=== PATIENT | female | born 1965 | race Caucasian/White ===

== ENCOUNTER 2016-11-18 12:40 | Inpatient (IN) | payer OTHER ==
[2016-11-18] MEDS ORDERED: SODIUM CHLORIDE 1,000 ML IV STA (12:47)
[2016-11-18 12:48] VITALS: BMI 35.9
[2016-11-18] MEDS ORDERED: METOCLOPRAMIDE HCL INJECTION 10 MG/2 ML VIAL IVPUSH ONE (13:09)
--- NOTE | 2016-11-18 13:11 | PDOC ---
History of Present Illness - General History Source: Patient Exam Limitations: No Limitations <ToñitoAsael - Last Filed: 11/18/16 17:02> - History of Present Illness Initial Comments: 11/18/16 17:33 Patient is a 51 year old female with significant medical hx of DM, DKA, gastroparesis, peripheral neuropathy, and ulcerative colitis who is presenting to the ED with one day of nausea, vomiting, and high blood sugar. The patient states that she began feeling unwell since last night, when her sugars were running in the 200s. Her blood sugar levels have been well controlled up until then. Today she woke up and began having multiple episodes of nausea and vomiting. She also endorses some frequency with urination. Denies fever, chills, diarrhea, dysuria, or hematuria. PMD: Vic Puri MD Global Mobility Specialist: Jose Garza MD Produce Runner: Danae James MD <Norma Wick - Last Filed: 11/18/16 17:35> - General Chief Complaint: Blood Sugar Problem Stated Complaint: HIGH SUGAR Past History - Past Medical History Anemia: No Asthma: Yes Cancer: No Cardiac Disorders: Yes (HEART MURMUR) CVA: No COPD: No CHF: No Dementia: No Diabetes: Yes (IDDM, INSULIN PUMP) GI Disorders: Yes (U.COLITIS,GASTROPARESIS) Disorders: No HTN: Yes Hypercholesterolemia: Yes Liver Disease: No Suicide Attempt (Hx): No Seizures: No Thyroid Disease: No - Surgical History Abdominal Surgery: No Appendectomy: No Cardiac Surgery: No Cholecystectomy: No Lung Surgery: No Neurologic Surgery: No Orthopedic Surgery: No - Immunization History Td Vaccination: No Immunization Up to Date: No - Psycho/Social/Smoking Cessation Hx Anxiety: No Suicidal Ideation: No Smoking Status: No Smoking History: Never smoked Years of Tobacco Use: 0 Have you smoked in the past 12 months: No Number of Cigarettes Smoked Daily: 0 Information on smoking cessation initiated: No Hx Alcohol Use: No Drug/Substance Use Hx: No Substance Use Type: None Hx Substance Use Treatment: No <Asael Sibley - Last Filed: 11/18/16 17:02> <Norma Wick - Last Filed: 11/18/16 17:35> - Past Medical History Allergies/Adverse Reactions: Allergies Allergy/AdvReac Type Severity Reaction Status Date / Time adhesive tape Allergy Mild Skin Rash Verified 11/18/16 12:44 clarithromycin [From Biaxin] Allergy N/V, RASH Verified 11/18/16 12:44 Home Medications: Ambulatory Orders Aspirin [Aspir-Low] 81 mg PO DAILY 01/20/13 Cholecalciferol (Vitamin D3) [Vitamin D3] 5,000 unit PO DAILY capsule 01/20/13 Simvastatin [Zocor -] 40 mg PO HS 06/12/14 Ranitidine HCl [Zantac] 150 mg PO DAILY PRN 10/14/15 Ondansetron [Zofran Odt -] 8 mg SL Q6H PRN 11/03/15 Amlodipine Besylate [Norvasc -] 10 mg PO DAILY #30 tablet 11/21/15 Albuterol Sulfate Inhaler - [Ventolin HFA Inhaler -] 1 - 2 inh PO Q4H #1 inhaler 05/17/16 Budesonide/Formeterol Fumarate [SYMBICORT 160/4.5mcg -] 1 inh PO BID 05/17/16 Insulin Pump Controller [Snap Insulin Pump Controller] 1 each MC ASDIR 07/02/16 Levothyroxine [Synthroid -] 25 mcg PO DAILY 11/18/16 Review of Systems - Review of Systems Comments:: 11/18/16 17:34 CONSTITUTIONAL: No reported: Fever, Chills, Diaphoresis, Generalized Weakness, Malaise, Loss of Appetite HEENT: No reported: Rhinorrhea, Nasal Congestion, Throat Pain, Throat Swelling, Difficulty Swallowing, Mouth Swelling, Ear Pain, Eye Pain, Visual Changes CARDIOVASCULAR: No reported: Chest Pain, Syncope, Palpitations, Irregular Heart Rate, Lightheadedness, Peripheral Edema RESPIRATORY: No reported: Cough, Shortness of Breath, SOB with Exertion, Orthopnea, Wheezing , Stridor, Hemoptysis GASTROINTESTINAL: Reported: Nausea, Vomiting No reported: Abdominal pain, Abdominal Distension, Diarrhea, Constipation, Melena, Hematochezia GENITOURINARY: Reported: Frequency No reported: Dysuria, Urgency, Hesitancy, Flank Pain, Genital Pain MUSCULOSKELETAL: No reported: Myalgia, Arthralgia, Joint Swelling, Back pain, Neck Pain SKIN: No reported: Rash, Itching, Pallor HEMEATOLOGIC/IMMUNOLOGIC: No reported: Easy Bleeding, Easy Bruising, Lymphadenopathy, Frequent infections ENDOCRINE: Reported: High Blood Sugar No reported: Unexplained Weight Gain, Unexplained Weight Loss, Heat Intolerance , Cold Intolerance NEUROLOGIC: No reported: Headache, Focal Weakness, Paresthesias, Vertigo, Lightheadedness, Unsteady Gait, Seizure, Mental Status Changes, Incontinence PSYCHIATRIC: No reported: Anxiety, Depression <eDlanoNorma - Last Filed: 11/18/16 17:35> *Physical Exam - Vital Signs Last Vital Signs Temp Pulse Resp BP Pulse Ox 97.9 F 103 H 18 113/45 96 11/18/16 12:45 11/18/16 12:45 11/18/16 12:45 11/18/16 12:45 11/18/16 12:45 <ToñitoAsael alan - Last Filed: 11/18/16 17:02> - Vital Signs Last Vital Signs Temp Pulse Resp BP Pulse Ox 97.9 F 108 H 16 109/59 97 11/18/16 13:00 11/18/16 15:07 11/18/16 15:07 11/18/16 15:07 11/18/16 15:07 - Physical Exam Comments: 11/18/16 17:34 GENERAL: The patient is awake, alert, and fully oriented, Nontoxic - in no acute distress. HEAD: Normocephalic, atraumatic. EYES: extraocular movements intact, sclera anicteric, conjunctiva clear. ENT: Normal voice, Mildly dry mucous membranes. NECK: Normal range of motion, supple LUNGS: Breath sounds equal, clear to auscultation bilaterally. No wheezes, no rhonchi, no rales. HEART: Slightly Tachycardic, without murmur, rub or gallop. ABDOMEN: Soft, nontender, normoactive bowel sounds. No guarding, no rebound.No CVA tenderness EXTREMITIES: Insulin pump left shoulder. Normal range of motion, no edema. No clubbing or cyanosis. No cords, erythema, or tenderness. NEUROLOGICAL: No facial assymetry, Normal speech, PSYCH: Normal mood, normal affect. SKIN: Warm, Dry, normal turgor. <DelanoNorma - Last Filed: 11/18/16 17:35> Heart Score/ECG Review - ECG Impressions Comment:: 11/18/16 13:22 Twelve-lead EKG was performed and reviewed by me. There is normal sinus rhythm with a rate of 103. Normal axis No ST changes suggestive of acute ischemia Sinus tachycardia <Toñito,Asael - Last Filed: 11/18/16 17:02> ED Treatment Course - LABORATORY CBC & Chemistry Diagram: 11/18/16 13:15 11/18/16 13:15 <Toñito,Asael - Last Filed: 11/18/16 17:02> - LABORATORY CBC & Chemistry Diagram: 11/18/16 13:15 11/18/16 13:15 - ADDITIONAL ORDERS Additional order review: Laboratory Results 11/18/16 11/18/16 11/18/16 13:15 13:15 13:15 INR 1.03 VBG pH POC VBG pCO2 POC VBG pO2 Mixed VBG HCO3 Sodium 136 Potassium 5.8 H D Chloride 99 Carbon Dioxide 20 L Anion Gap 17 H BUN 44 H D Creatinine 1.7 H D Creat Clearance w eGFR 31.69 Random Glucose 675 H* D Calcium 9.6 Total Bilirubin 0.6 D AST 22 D ALT 24 D Alkaline Phosphatase 116 D Total Protein 7.0 Albumin 4.1 D Urine Color Urine Appearance Urine pH Ur Specific [place] Urine Protein Urine Glucose (UA) Urine Ketones Urine Blood Urine Nitrite Urine Bilirubin Urine Urobilinogen Ur Leukocyte Esterase Acetone, Qual Trace H 11/18/16 11/18/16 13:00 12:53 INR VBG pH 7.28 L POC VBG pCO2 45.3 POC VBG pO2 35.7 D Mixed VBG HCO3 20.3 Sodium Potassium Chloride Carbon Dioxide Anion Gap BUN Creatinine Creat Clearance w eGFR Random Glucose Calcium Total Bilirubin AST ALT Alkaline Phosphatase Total Protein Albumin Urine Color Straw Urine Appearance Clear Urine pH 5.0 Ur Specific [place] 1.022 Urine Protein Negative Urine Glucose (UA) 3+ H Urine Ketones 1+ H Urine Blood Negative Urine Nitrite Negative Urine Bilirubin Negative Urine Urobilinogen Negative Ur Leukocyte Esterase Negative Acetone, Qual 11/18/16 13:15 RBC 4.77 D MCV 80.2 MCHC 31.3 L RDW 14.3 MPV 9.5 Neutrophils % 91.7 H D Lymphocytes % 5.3 L D Monocytes % 2.5 L Eosinophils % 0.2 D Basophils % 0.3 - RADIOLOGY Radiograph Interpretation: 11/18/16 16:11 Chest X-Ray Impression: No acute pathology. Reported By: Jose Bray MD - Medications Given in the ED: ED Medications Discontinued Medications Generic Name Dose Route Start Last Admin Trade Name Malathi PRN Reason Stop Dose Admin Sodium Chloride 1,000 mls @ 1,000 mls/hr 11/18/16 12:47 11/18/16 13:40 Normal Saline - IV 11/18/16 13:46 1,000 mls/hr .Q1H STA Administration Sodium Chloride 1,000 mls @ 1,000 mls/hr 11/18/16 14:49 11/18/16 14:58 Normal Saline - IV 11/18/16 15:48 1,000 mls/hr .Q1H ONE Administration Insulin Human Regular 8 units 11/18/16 14:51 11/18/16 15:07 Novolin R Vial *For Ivpush Or Iv Drip Only* IVPUSH 11/18/16 14:52 8 units ONCE ONE Administration Metoclopramide HCl 10 mg 11/18/16 13:09 11/18/16 13:40 Reglan Injection - IVPUSH 11/18/16 13:10 10 mg ONCE ONE Administration <Norma Wick - Last Filed: 11/18/16 17:35> Medical Decision Making - Medical Decision Making 11/18/16 13:09 51y F hx of insulin dependent DM c/b dka, gastroparesis, UC (well controlled, not on any meds currently) on an insulin pump presents with feeling nauseas with several episodes of vomiting of food contents w/o associated abd pain,f ever/chills, diarrhea, cp, sob, pt noticed her finger sticks increasing yesterday to the 200s and then 450s last night, and was in the 500s this morning. concern for possible dka no abd pain to suggestive acute infective process will ck labs, vbg, serum acetones will hydrate pt with fluids will ck ua to r/o dka will reassess A portion of this note was documented by scribe services under my direction. I have reviewed the details of the note, within reason, and agree with the documentation with the following case summary and management plan written by me 11/18/16 16:08 pts labs noted for mild acidosis, co2 = 20, anion gap of 17 +leukocytosis +trace serum acetones bgmp 600s suspect early dka - will give insulin boluses and recheck her blood sugar will notify dr. James (endocrine) will admit for further management of hyperglycemia 11/18/16 17:[address] wendy james states she agrees with management, but cannot see the pt as she does not have privileges here at [facility] agreed with admission for further mangaement of early dka/hyperglycemia will continue hydration/fluid resusitation stable for med/surg. Case discussed in detail with admitting physician including history, physical exam and ancillary studies. Admitting physician has assumed care for the patient, will follow all pending diagnostics and will complete the evaluation and treatment. <Asael Sibley - Last Filed: 11/18/16 17:02> *DC/Admit/Observation/Transfer - Discharge Dispostion Admit: Yes <Asael Sibley - Last Filed: 11/18/16 17:02> - Attestations Scribe Attestion: 11/18/16 17:35 Documentation prepared by Norma Wick, acting as medical laboratory specialist for Asael Sibley MD. <Norma Wick - Last Filed: 11/18/16 17:35> Diagnosis at time of Disposition: Nausea Diabetic ketoacidosis Qualifiers: Diabetes mellitus type: type 1 Diabetes mellitus complication detail: without coma Qualified Code(s): E10.10 - Type 1 diabetes mellitus with ketoacidosis without coma - Referrals Referrals: Vic Puri MD [Primary Care Provider] -
[2016-11-18] MEDS ORDERED: METOCLOPRAMIDE HCL INJECTION 10 MG/2 ML VIAL ONE (13:22)
[2016-11-18 13:23] LABS: URINE APPEARANCE CLEAR; URINE BILIRUBIN NEGATIVE (NEGATIVE); URINE BLOOD NEGATIVE (NEGATIVE); URINE COLOR STRAW; URINE GLUCOSE (UA) 3+ (NEGATIVE); URINE KETONE 1+ (NEGATIVE); URINE LEUK ESTERASE NEGATIVE (NEGATIVE); URINE NITRITE NEGATIVE (NEGATIVE); URINE PROTEIN NEGATIVE (NEGATIVE); URINE UROBILINOGEN NEGATIVE E.U./dl (0.2-1.0)
[2016-11-18 13:40] LABS: BASOPHIL 0.3 % (0-2.0); EOSINOPHIL 0.2 % (0-4.5); MCH 25.1 pg (25.7-33.7); MCHC 31.3 g/dl (32.0-36.0); MEAN CELL VOLUME 80.2 fl (80-96); MEAN PLT VOLUME 9.5 fl (7.5-11.1); NEUTROPHILS 91.7 % (42.8-82.8); PLATELET COUNT 222 K/MM3 (134-434); RDW 14.3 % (11.6-15.6); WHITE BLOOD COUNT 16.6 K/mm3 (4.0-10.0)
[2016-11-18 13:48] LABS: VENOUS BLOOD GAS HCO3 20.3 meq/L (19-25)
[2016-11-18 13:51] LABS: VENOUS PH 7.28 (7.32-7.42)
[2016-11-18 13:57] LABS: INR 1.03 (0.82-1.09); PROTHROMBIN TIME (PATIENT) 11.3 SEC (9.98-11.88)
[2016-11-18 14:25] LABS: ALBUMIN 4.1 g/dl (3.4-5.0); BILIRUBIN,TOTAL 0.6 mg/dL (0.2-1.0); CALCIUM 9.6 mg/dL (8.5-10.1); COCKROFT - GAULT 53.261; CREATININE 1.7 mg/dL (0.55-1.02)
[2016-11-18] MEDS ORDERED: SODIUM CHLORIDE 1,000 ML IV ONE ×2 (14:49→16:07)
[2016-11-18] MEDS ORDERED: INSULIN REGULAR HUMAN 100 UNITS/ML *VIAL IVPUSH ONE (14:51)
[2016-11-18] MEDS ORDERED: INSULIN REGULAR HUMAN 100 UNITS/ML *VIAL ONE (15:02)
--- NOTE | 2016-11-18 17:10 | HP ---
CHIEF COMPLAINT: "my sugar is high" PCP: Dr Puri Endocrine: Dr James HISTORY OF PRESENT ILLNESS: This is a 51 yo F with PMH of IDDM (insuling Pump), previous DKA 11/2013, gastroparesis, asthma, ulcerative colitis (controlled, not on meds), hypothyroidism, HTN, HLD and cardiac murmur, who presents due to elevated sugars and n/v. She states that yesterday she was in her usual health except for mild allergies. She checked her sugars and they were climbing as high as 450 but went down to 250 at night. In the morning she woke up feeling ill and nauseous, her BG 550. She had 4 episodes of nbnb vomit. She lost appetite. She denies sick contacts, fever chills, chest pain, sob, h.a, throat pain, abd pain , dysuria or diarrhea. She states that her BG has been better controlled, A1C 8.1 1 mo ago. She feels better in ED after insulin, reglan and IVF ER course was notable for: (1)labs (2)cxr (3)8 units novolin, 3L NS IV, reglan 10. Recent Travel:denies PAST MEDICAL HISTORY: as above PAST SURGICAL HISTORY: cataract Social History: lives with son and mother. cubicle job Smoking: denies Alcohol: denies Drugs: denies Family History: DM, CAD Allergies adhesive tape Allergy (Mild, Verified 11/18/16 12:44) Skin Rash clarithromycin [From Biaxin] Allergy (Verified 11/18/16 12:44) N/V, RASH HOME MEDICATIONS: Home Medications Medication Instructions Recorded Aspirin [Aspir-Low] 81 mg PO DAILY 01/20/13 Cholecalciferol (Vitamin D3) 5,000 unit PO DAILY capsule 01/20/13 [Vitamin D3] Simvastatin [Zocor -] 40 mg PO HS 06/12/14 Ranitidine HCl [Zantac] 150 mg PO DAILY PRN 10/14/15 Ondansetron [Zofran Odt -] 8 mg SL Q6H PRN 11/03/15 Amlodipine Besylate [Norvasc -] 10 mg PO DAILY #30 tablet 11/21/15 Albuterol Sulfate Inhaler - 1 - 2 inh PO Q4H #1 inhaler 05/17/16 [Ventolin HFA Inhaler -] Budesonide/Formeterol Fumarate 1 inh PO BID 05/17/16 [SYMBICORT 160/4.5mcg -] Insulin Pump Controller [Snap 1 each MC ASDIR 07/02/16 Insulin Pump Controller] Levothyroxine [Synthroid -] 25 mcg PO DAILY 11/18/16 REVIEW OF SYSTEMS CONSTITUTIONAL: Absent: fever, chills, diaphoresis HEENT: Absent: throat pain, ear pain CARDIOVASCULAR: Absent: chest pain, syncope, palpitations RESPIRATORY: Absent: cough, shortness of breath, orthopnea, wheezing, stridor, hemoptysis GASTROINTESTINAL: Absent: abdominal pain, abdominal distension, diarrhea, constipation, melena, hematochezia GENITOURINARY: Absent: dysuria, flank pain MUSCULOSKELETAL: Absent: myalgia, arthralgia SKIN: Absent: rash, itching, pallor HEMATOLOGIC/IMMUNOLOGIC: Absent: frequent infections ENDOCRINE: Absent: unexplained weight gain, unexplained weight loss NEUROLOGIC: Absent: headache, focal weakness or paresthesias PSYCHIATRIC: Absent: anxiety, depression PHYSICAL EXAMINATION Vital Signs - 24 hr 11/18/16 11/18/16 11/18/16 12:45 13:00 15:07 Temperature 97.9 F 97.9 F Pulse Rate 103 H 103 H Pulse Rate [ 108 H Apical] Respiratory 18 18 16 Rate Blood Pressure 113/45 113/45 Blood Pressure 109/59 [Left Arm] O2 Sat by Pulse 96 96 97 Oximetry (%) GENERAL: Awake, alert, and fully oriented, in no acute distress. HEAD: Normal with no signs of trauma. EYES: Pupils equal, round and reactive to light, extraocular movements intact, sclera anicteric, conjunctiva clear. No lid lag. EARS, NOSE, THROAT: Moist mucous membranes. NECK: supple LUNGS: Breath sounds equal, clear to auscultation bilaterally. No wheezes HEART: Regular rate and rhythm, normal S1 and S2 grade 2 syst ej murmur ABDOMEN: Soft, nontender, not distended, normoactive bowel sounds, no guarding, no rebound, no masses. mild hepatomegaly MUSCULOSKELETAL: No CVA tenderness. UPPER EXTREMITIES: 2+ pulses, warm, well-perfused. No cyanosis. No clubbing. No peripheral edema. LOWER EXTREMITIES: 2+ pulses, warm, well-perfused. No calf tenderness. trace edema. NEUROLOGICAL: Cranial nerves II-XII grossly intact. Normal speech. PSYCHIATRIC: Cooperative. Good eye contact. Appropriate mood and affect. SKIN: Warm, dry Laboratory Results - last 24 hr 11/18/16 11/18/16 11/18/16 12:53 13:00 13:15 WBC 16.6 H D RBC 4.77 D Hgb 12.0 D Hct 38.3 D MCV 80.2 MCHC 31.3 L RDW 14.3 Plt Count 222 D MPV 9.5 Neutrophils % 91.7 H D Lymphocytes % 5.3 L D Monocytes % 2.5 L Eosinophils % 0.2 D Basophils % 0.3 INR VBG pH 7.28 L POC VBG pCO2 45.3 POC VBG pO2 35.7 D Mixed VBG HCO3 20.3 Sodium Potassium Chloride Carbon Dioxide Anion Gap BUN Creatinine Creat Clearance w eGFR Random Glucose Calcium Total Bilirubin AST ALT Alkaline Phosphatase Total Protein Albumin Urine Color Straw Urine Appearance Clear Urine pH 5.0 Ur Specific [place] 1.022 Urine Protein Negative Urine Glucose (UA) 3+ H Urine Ketones 1+ H Urine Blood Negative Urine Nitrite Negative Urine Bilirubin Negative Urine Urobilinogen Negative Ur Leukocyte Esterase Negative Acetone, Qual 11/18/16 11/18/16 11/18/16 13:15 13:15 13:15 WBC RBC Hgb Hct MCV MCHC RDW Plt Count MPV Neutrophils % Lymphocytes % Monocytes % Eosinophils % Basophils % INR 1.03 VBG pH POC VBG pCO2 POC VBG pO2 Mixed VBG HCO3 Sodium 136 Potassium 5.8 H D Chloride 99 Carbon Dioxide 20 L Anion Gap 17 H BUN 44 H D Creatinine 1.7 H D Creat Clearance w eGFR 31.69 Random Glucose 675 H* D Calcium 9.6 Total Bilirubin 0.6 D AST 22 D ALT 24 D Alkaline Phosphatase 116 D Total Protein 7.0 Albumin 4.1 D Urine Color Urine Appearance Urine pH Ur Specific [place] Urine Protein Urine Glucose (UA) Urine Ketones Urine Blood Urine Nitrite Urine Bilirubin Urine Urobilinogen Ur Leukocyte Esterase Acetone, Qual Trace H ASSESSMENT/PLAN: This is a 51 yo F with PMH of IDDM (insuling Pump), previous DKA 11/2013, gastroparesis, asthma, ulcerative colitis (controlled, not on meds), hypothyroidism, HTN, HLD and cardiac murmur, who presents due to elevated sugars and n/v. DKA -BGM 675 improed to 334 s/p 8 U novolin IV push -gap was 17 now closed -hyperkalemia 5.8; PH was above 6.9 so HCO3 not indicated, now improved to 4.4 -corrected Na 142 -place on insulin sliding scale BGM q4h -NPO except meds DARINEL -Creat 1.7 improved to 1.4 with IVF; baseline =1 -pre renal/dehydration -continue IVF hydration Leukocytosis -reactive, no evidence of infectious process Gastroparesis -reglan 10 iv prn -zofran prn Asthma -symbicort, duoneb, albuterol Hypothyroidism -levothyroxone 25 d HTN -norvasc 10 d HLD -atorvastatin 40 hs Ulcerative colitis -controlled w/o meds FEN NS@150 lytes stable NPO except meds, start liquids tomorrow Dispo: admit med joao Problem List - Problem (1) Diabetic ketoacidosis Code(s): E13.10 - OTH DIABETES MELLITUS WITH KETOACIDOSIS WITHOUT COMA Qualifiers: Diabetes mellitus type: type 1 Diabetes mellitus complication detail: without coma Qualified Code(s): E10.10 - Type 1 diabetes mellitus with ketoacidosis without coma (2) Nausea Code(s): R11.0 - NAUSEA (3) Dehydration Code(s): E86.0 - DEHYDRATION (4) Hypertension Code(s): I10 - ESSENTIAL (PRIMARY) HYPERTENSION (5) Leukocytosis Code(s): D72.829 - ELEVATED WHITE BLOOD CELL COUNT, UNSPECIFIED (6) Diabetic gastroparesis Code(s): E11.43 - TYPE 2 DIABETES W DIABETIC AUTONOMIC (POLY)NEUROPATHY K31.84 - GASTROPARESIS (7) Hyperlipidemia Code(s): E78.5 - HYPERLIPIDEMIA, UNSPECIFIED (8) Hypothyroid Code(s): E03.9 - HYPOTHYROIDISM, UNSPECIFIED (9) Asthma Code(s): J45.909 - UNSPECIFIED ASTHMA, UNCOMPLICATED (10) Ulcerative colitis Code(s): K51.90 - ULCERATIVE COLITIS, UNSPECIFIED, WITHOUT COMPLICATIONS Visit type - Emergency Visit Emergency Visit: Yes ED Registration Date: 11/18/16 Care time: The patient presented to the Emergency Department on the above date and was hospitalized for further evaluation of their emergent condition. - New Patient This patient is new to me today: Yes Date on this admission: 11/18/16 - Critical Care Critical Care patient: No
[2016-11-18 17:56] LABS: CALCIUM 8.3 mg/dL (8.5-10.1); COCKROFT - GAULT 64.6765; CREATININE 1.4 mg/dL (0.55-1.02)
--- NOTE | 2016-11-18 18:06 | PN ---
Teaching Attending Note Name of Resident: Caridad Chung ATTENDING PHYSICIAN STATEMENT I saw and evaluated the patient. I reviewed the resident's note and discussed the case with the resident. I agree with the resident's findings and plan as documented. SUBJECTIVE: OBJECTIVE: Vital Signs Period Temp Pulse Resp BP Sys/Sheth Pulse Ox Last 24 Hr 97.9 F-97.9 F 103-108 16-18 109-122/45-59 95-97 ASSESSMENT AND PLAN:
[2016-11-18] MEDS ORDERED: INSULIN SLIDING SCALE (NOVOLOG) 1 VIAL SQ SCH (18:30)
[2016-11-18] MEDS ORDERED: SODIUM CHLORIDE 1,000 ML IV SCH (18:30)
[2016-11-18] MEDS ORDERED: INSULIN (NOVOLOG) ASPART 100 UNITS/ML 10ML VIAL ONE ×2 (18:37→22:00)
[2016-11-18] MEDS ORDERED: ONDANSETRON *ODT* 4 MG TABLET SL PRN (18:53)
[2016-11-18] MEDS ORDERED: RANITIDINE HCL 150 MG TABLET (FP) PO PRN (18:53)
[2016-11-18] MEDS ORDERED: METOCLOPRAMIDE HCL INJECTION 10 MG/2 ML VIAL IVPUSH PRN (18:55)
[2016-11-18] MEDS ORDERED: ALBUTEROL SO4 6.7 GM HFA INHALER IH PRN (19:00)
[2016-11-18] MEDS: SODIUM CHLORIDE 1,000 ML IV SCH (20:05)
[2016-11-18] MEDS ORDERED: Insulin (LOG) Aspart 100 UNITS/ML VIAL SQ ONE (21:59)
[2016-11-18] MEDS: ATORVASTATIN CA 40 MG TABLET (FP) PO SCH (22:05)
[2016-11-18] MEDS: BUDESONIDE/FORMETEROL FUMARATE 160/4.5 mcg INHALER IH SCH (22:06)
[2016-11-18] MEDS: INSULIN SLIDING SCALE (NOVOLOG) 1 VIAL SQ SCH (22:13)
[2016-11-19] MEDS: INSULIN SLIDING SCALE (NOVOLOG) 1 VIAL SQ SCH ×3 (06:14→16:32)
[2016-11-19 08:09] LABS: MCH 25.5 pg (25.7-33.7); MCHC 32.5 g/dl (32.0-36.0); MEAN CELL VOLUME 78.5 fl (80-96); MEAN PLT VOLUME 9.4 fl (7.5-11.1); PLATELET COUNT 193 K/MM3 (134-434); RDW 14.9 % (11.6-15.6); WHITE BLOOD COUNT 11.7 K/mm3 (4.0-10.0)
[2016-11-19 08:44] LABS: CALCIUM 7.9 mg/dL (8.5-10.1); COCKROFT - GAULT 69.649; CREATININE 1.3 mg/dL (0.55-1.02); MAGNESIUM 2.1 mg/dL (1.8-2.4); PHOSPHOROUS 3.1 mg/dL (2.5-4.9)
[2016-11-19] MEDS: SODIUM CHLORIDE 1,000 ML IV SCH ×2 (09:14→18:06)
[2016-11-19] MEDS ORDERED: PT OWN MED DRAWER 7, Y5N ONE ×2 (10:28→21:55)
[2016-11-19] MEDS: ASPIRIN COATED 81 MG TABLET.EC PO SCH (10:32)
[2016-11-19] MEDS: BUDESONIDE/FORMETEROL FUMARATE 160/4.5 mcg INHALER IH SCH ×2 (10:32→22:01)
[2016-11-19] MEDS: amLODIPine BESYLATE 10 MG TABLET (FP) PO SCH (10:32)
[2016-11-19] MEDS: LEVOTHYROXINE NA 25 MCG TABLET (FP) PO SCH (10:32)
[2016-11-19] MEDS: MONTELUKAST NA 10 MG TABLET PO SCH (10:32)
--- NOTE | 2016-11-19 14:31 | EKG ---
Test Reason : Blood Pressure : / mmHG Vent. Rate : 102 BPM Atrial Rate : 102 BPM P-R Int : 140 ms QRS Dur : 074 ms QT Int : 350 ms P-R-T Axes : 044 -01 028 degrees QTc Int : 456 ms SINUS TACHYCARDIA possible lateral ischemia POSSIBLE LEFT ATRIAL ENLARGEMENT NONSPECIFIC ST ABNORMALITY ABNORMAL ECG NO PREVIOUS ECGS AVAILABLE Confirmed by LOLIS RASHID MD ([id number]) on 11/19/2016 2:31:32 PM Referred By: Confirmed By:LOLIS RASHID MD
--- NOTE | 2016-11-19 15:55 | PN ---
Physical Exam: SUBJECTIVE: Patient seen and examined Patient resting in bed NAD. No acute events. Afebrile and hemodynamically stable. Glucose has been in mid 300's off pump, on sliding scale only. required 10 u at night. Feels well. Denies n/v, maiaise, and pain, pilyuria. OBJECTIVE: Vital Signs Period Temp Pulse Resp BP Sys/Sheth Pulse Ox Last 24 Hr 97.9 F-98.6 F 95-113 16-20 106-134/57-66 95-99 GENERAL: Awake, alert, and fully oriented, in no acute distress. HEAD: Normal with no signs of trauma. EYES: Pupils equal, round and reactive to light, extraocular movements intact, sclera anicteric, conjunctiva clear. No lid lag. EARS, NOSE, THROAT: Moist mucous membranes. NECK: supple LUNGS: Breath sounds equal, clear to auscultation bilaterally. No wheezes HEART: Regular rate and rhythm, normal S1 and S2 grade 2 syst ej murmur ABDOMEN: Soft, nontender, not distended, normoactive bowel sounds, no guarding, no rebound, no masses. mild hepatomegaly MUSCULOSKELETAL: No CVA tenderness. UPPER EXTREMITIES: 2+ pulses, warm, well-perfused. No cyanosis. No clubbing. No peripheral edema. LOWER EXTREMITIES: 2+ pulses, warm, well-perfused. No calf tenderness. trace edema. NEUROLOGICAL: Cranial nerves II-XII grossly intact. Normal speech. PSYCHIATRIC: Cooperative. Good eye contact. Appropriate mood and affect. SKIN: Warm, dry Laboratory Results - last 24 hr 11/18/16 11/19/16 11/19/16 21:25 06:01 06:20 WBC RBC Hgb Hct MCV MCHC RDW Plt Count MPV Sodium 143 Potassium 4.3 Chloride 113 H Carbon Dioxide 20 L Anion Gap 10 BUN 35 H Creatinine 1.3 H POC Glucometer 361 360 Random Glucose 370 H* Calcium 7.9 L Phosphorus 3.1 D Magnesium 2.1 11/19/16 11/19/16 11/19/16 06:30 11:18 13:27 WBC 11.7 H RBC 3.95 Hgb 10.1 L D Hct 31.0 L D MCV 78.5 L MCHC 32.5 RDW 14.9 Plt Count 193 MPV 9.4 Sodium Potassium Chloride Carbon Dioxide Anion Gap BUN Creatinine POC Glucometer 361 345 Random Glucose Calcium Phosphorus Magnesium Active Medications Generic Name Dose Route Start Last Admin Trade Name Freq PRN Reason Stop Dose Admin Albuterol Sulfate 1 puff 11/18/16 19:00 Ventolin Hfa Inhaler - IH Q4H PRN Amlodipine Besylate 10 mg 11/19/16 10:00 11/19/16 10:32 Norvasc - PO 10 mg DAILY ANDI Administration Aspirin 81 mg 11/19/16 10:00 11/19/16 10:32 Ecotrin - PO 81 mg DAILY ANDI Administration Atorvastatin Calcium 40 mg 11/18/16 22:00 11/18/16 22:05 Lipitor - PO 40 mg HS ANDI Administration Budesonide/Formoterol Fumarate 1 puff 11/18/16 22:00 11/19/16 10:32 Symbicort 160/4.5mcg - IH 1 puff BID ANDI Administration Sodium Chloride 1,000 mls @ 100 mls/hr 11/18/16 19:19 11/19/16 09:14 Normal Saline - IV 100 mls/hr ASDIR ANDI Administration Insulin Aspart 1 vial 11/18/16 22:00 11/19/16 11:22 Novolog Vial Sliding Scale - SQ 10 units ACHS ANDI Administration Protocol Levothyroxine Sodium 25 mcg 11/19/16 10:00 11/19/16 10:32 Synthroid - PO 25 mcg DAILY ANDI Administration Metoclopramide HCl 10 mg 11/18/16 18:55 Reglan Injection - IVPUSH Q6H PRN NAUSEA AND/OR VOMITING Montelukast Sodium 10 mg 11/19/16 10:00 11/19/16 10:32 Singulair - PO 10 mg DAILY ANDI Administration Ondansetron HCl 8 mg 11/18/16 18:53 Zofran Odt - SL Q6H PRN NAUSEA AND/OR VOMITING Ranitidine HCl 150 mg 11/18/16 18:53 Zantac - PO DAILY PRN DYSPEPSIA ASSESSMENT/PLAN: This is a 51 yo F with PMH of IDDM (insuling Pump), previous DKA 11/2013, gastroparesis, asthma, ulcerative colitis (controlled, not on meds), hypothyroidism, HTN, HLD and cardiac murmur, who presents due to elevated sugars and n/v. DKA/ DM1 -symptomatic resolution -sugars mid 300's on sliding scale + her own pump basal insulin (21.2 units per day total) -spoke with her obstetrics gynecology md: ROC PERKINSS. give 6 U Novolog with every mean plus sliding scale. Likely went into DKA due to kink in pump catheter -possible d/c topmorrow. made apt with endocrinology at 230 pm tomorrow -gap closed -hyperkalemia resolved -corrected Na 145 -diabetic diet DARINEL -Creat 1.7 improved to 1.3 with IVF; baseline =1 -pre renal/dehydration -continue IVF hydration Leukocytosis -reactive, no evidence of infectious process Gastroparesis -reglan 10 iv prn -zofran prn Asthma -symbicort, duoneb, albuterol Hypothyroidism -levothyroxone 25 d HTN -norvasc 10 d HLD -atorvastatin 40 hs Ulcerative colitis -controlled w/o meds FEN NS@100 lytes stable NPO except meds, start liquids tomorrow Dispo: med joao Problem List - Problems (1) Diabetic ketoacidosis Code(s): E13.10 - OTH DIABETES MELLITUS WITH KETOACIDOSIS WITHOUT COMA Qualifiers: Diabetes mellitus type: type 1 Diabetes mellitus complication detail: without coma Qualified Code(s): E10.10 - Type 1 diabetes mellitus with ketoacidosis without coma (2) Nausea Code(s): R11.0 - NAUSEA (3) Dehydration Code(s): E86.0 - DEHYDRATION (4) Hypertension Code(s): I10 - ESSENTIAL (PRIMARY) HYPERTENSION (5) Leukocytosis Code(s): D72.829 - ELEVATED WHITE BLOOD CELL COUNT, UNSPECIFIED (6) Diabetic gastroparesis Code(s): E11.43 - TYPE 2 DIABETES W DIABETIC AUTONOMIC (POLY)NEUROPATHY K31.84 - GASTROPARESIS (7) Hyperlipidemia Code(s): E78.5 - HYPERLIPIDEMIA, UNSPECIFIED (8) Hypothyroid Code(s): E03.9 - HYPOTHYROIDISM, UNSPECIFIED (9) Asthma Code(s): J45.909 - UNSPECIFIED ASTHMA, UNCOMPLICATED (10) Ulcerative colitis Code(s): K51.90 - ULCERATIVE COLITIS, UNSPECIFIED, WITHOUT COMPLICATIONS Visit type - Emergency Visit Emergency Visit: Yes ED Registration Date: 11/18/16 Care time: The patient presented to the Emergency Department on the above date and was hospitalized for further evaluation of their emergent condition. - New Patient This patient is new to me today: No - Critical Care Critical Care patient: No - Discharge Referral Referred to [facility] Med P.C.: No
--- NOTE | 2016-11-19 16:04 | PN ---
Teaching Attending Note Name of Resident: Caridad Chung ATTENDING PHYSICIAN STATEMENT I saw and evaluated the patient. I reviewed the resident's note and discussed the case with the resident. I agree with the resident's findings and plan as documented. SUBJECTIVE: no fever , chils or abd pain . seels better . OBJECTIVE: NAD Cv : RRR Lung s: CTAb ext : no edema , no fungal infection among toes Abd : soft, NT, Nd , NL BS ASSESSMENT AND PLAN: 51 y/o lady with h/o IDDM , DKA, gastroparesis, asthma, UC , hypothyroidism, HTN , and HLP , who presented with abd pain and n/V . she was found to have DKA 1-DKA : AG closed , sugars have improved but still elevated on no basal insulin - cont SSI with meals - Asked pt to resume her basal coverage through pump ( 22 units /day ) - carb count , to estimate insulin requirement - no evidence of infection 2- DARINEL : probably due to volume depletion - cont IVF . Cr improved - Hold ARB 3- HTN: hold ARB . monitor BP dispo : possible dc tomorrow
[2016-11-19] MEDS ORDERED: INSULIN (NOVOLOG) ASPART 100 UNITS/ML 10ML VIAL ONE (16:24)
[2016-11-19] MEDS: INSULIN (NOVOLOG) ASPART 100 UNITS/ML 10ML VIAL SQ SCH (16:32)
[2016-11-19] MEDS ORDERED: ACETAMINOPHEN 325 MG TABLET (FP) PO PRN (17:51)
[2016-11-19 20:11] LABS: CALCIUM 8.4 mg/dL (8.5-10.1); COCKROFT - GAULT 69.649; CREATININE 1.3 mg/dL (0.55-1.02)
[2016-11-19] MEDS: ATORVASTATIN CA 40 MG TABLET (FP) PO SCH (22:01)
[2016-11-20] MEDS: INSULIN SLIDING SCALE (NOVOLOG) 1 VIAL SQ SCH ×2 (06:03→12:05)
[2016-11-20] MEDS: INSULIN (NOVOLOG) ASPART 100 UNITS/ML 10ML VIAL SQ SCH ×2 (06:03→12:05)
[2016-11-20 06:13] VITALS: PULSE 96; TEMP 98.3
[2016-11-20] MEDS ORDERED: POLYETHYLENE GLYCOL 3350 119 GM BTL PO SCH (08:15)
[2016-11-20 09:20] LABS: CALCIUM 8.5 mg/dL (8.5-10.1); COCKROFT - GAULT 113.186; CREATININE 0.8 mg/dL (0.55-1.02)
[2016-11-20] MEDS ORDERED: PT OWN MED DRAWER 7, Y5N ONE (09:24)
[2016-11-20] MEDS: amLODIPine BESYLATE 10 MG TABLET (FP) PO SCH (09:27)
[2016-11-20] MEDS: LEVOTHYROXINE NA 25 MCG TABLET (FP) PO SCH (09:27)
[2016-11-20] MEDS: MONTELUKAST NA 10 MG TABLET PO SCH (09:27)
[2016-11-20] MEDS: ASPIRIN COATED 81 MG TABLET.EC PO SCH (09:27)
[2016-11-20] MEDS: BUDESONIDE/FORMETEROL FUMARATE 160/4.5 mcg INHALER IH SCH (09:28)
[2016-11-20 10:57] VITALS: BP 148/84
--- NOTE | 2016-11-20 11:11 | DS ---
Physical Exam: SUBJECTIVE: Patient seen and examined Patient resting in bed NAD. received prandial insulin at 6 am but ate at 8 am, got nauseous in between bet felt better with meal. During meal BGM 106. Afebrile and hemodynamically stable. Glucose has been in mid 100's on pump, and injected prandial insulin. required 10 u at night. Feels well. Denies n/v, maiaise, and pain, pilyuria. OBJECTIVE: Vital Signs Period Temp Pulse Resp BP Sys/Sheth Pulse Ox Last 24 Hr 97.8 F-98.3 F 89-96 18-20 127-150/51-84 PHYSICAL EXAM GENERAL: Awake, alert, and fully oriented, in no acute distress. HEAD: Normal with no signs of trauma. EYES: Pupils equal, round and reactive to light, extraocular movements intact, sclera anicteric, conjunctiva clear. No lid lag. EARS, NOSE, THROAT: Moist mucous membranes. NECK: supple LUNGS: Breath sounds equal, clear to auscultation bilaterally. No wheezes HEART: Regular rate and rhythm, normal S1 and S2 grade 2 syst ej murmur ABDOMEN: Soft, nontender, not distended, normoactive bowel sounds, no guarding, no rebound, no masses. mild hepatomegaly MUSCULOSKELETAL: No CVA tenderness. UPPER EXTREMITIES: 2+ pulses, warm, well-perfused. No cyanosis. No clubbing. No peripheral edema. LOWER EXTREMITIES: 2+ pulses, warm, well-perfused. No calf tenderness. trace edema. NEUROLOGICAL: Cranial nerves II-XII grossly intact. Normal speech. PSYCHIATRIC: Cooperative. Good eye contact. Appropriate mood and affect. SKIN: Warm, dry LABS Laboratory Results - last 24 hr 11/19/16 11/19/16 11/19/16 11:18 13:27 16:20 Sodium Potassium Chloride Carbon Dioxide Anion Gap BUN Creatinine POC Glucometer 361 345 288 Random Glucose Calcium 11/19/16 11/19/16 11/20/16 19:05 20:53 05:29 Sodium 142 Potassium 4.9 Chloride 109 H Carbon Dioxide 24 Anion Gap 9 BUN 26 H D Creatinine 1.3 H POC Glucometer 251 161 Random Glucose 343 H* Calcium 8.4 L 11/20/16 11/20/16 11/20/16 08:20 08:23 09:12 Sodium 144 Potassium 3.8 D Chloride 111 H Carbon Dioxide 24 Anion Gap 9 BUN 18 D Creatinine 0.8 D POC Glucometer 104 127 Random Glucose 111 H D Calcium 8.5 HOSPITAL COURSE: Date of Admission:11/18/16 This is a 51 yo F with PMH of IDDM Type 1 (insuling Pump), previous DKA 11/2013 , gastroparesis, asthma, ulcerative colitis (controlled, not on meds), hypothyroidism, HTN, HLD and cardiac murmur, who presents due to elevated sugars and n/v. She states that yesterday she was in her usual health except for mild allergies. She checked her sugars and they were climbing as high as 450 , in the morning she woke up feeling ill and nauseous, her BG 550. She had 4 episodes of nbnb vomit. She states that while on insulin pump for past year, her BG has been better controlled, A1C 8.1 1 mo ago. Patient treated with IV insulin, gap closed in ED. Placed back on her pump for basal and on injectable prandial by staff. her transient janessa resolved with IVF. Her wood cabinet finisher Dr James thinks that her pump catheter got kinked, which is whys he wasn't getting insulin at home. Patients glucose normalized to mid 100's and she was discharged directly to Dr James office for f/u. se was instructed to resume pump as usual. Date of Discharge: 11/20/16 Minutes to complete discharge: 45 (na) Discharge Summary Reason For Visit: DIABETIC KETOACIDOSIS; DEHYDRATION Current Active Problems Asthma (Acute) Diabetic ketoacidosis (Acute) Hypothyroid (Acute) Nausea (Acute) Ulcerative colitis (Acute) Condition: Good - Instructions Diet, Activity, Other Instructions: you were in the hospital because of DKA. your sugars have now normalized. resume your insulin pump with basal and calculated doses as usual. see Dr James today at 230 om. make sure your pump catheter is not kinked or inserted in an area with scarring. resume all home meds follow upo with Dr puri in 1 week. return to hospital if symptoms resume. Referrals: Vic Puri MD [Primary Care Provider] - 1 Week Saira James [Non Staff, Medical] - 1 Week (today 230 pm) Disposition: HOME - Home Medications Comprehensive Discharge Medication List: Ambulatory Orders Aspirin [Aspir-Low] 81 mg PO DAILY 01/20/13 Cholecalciferol (Vitamin D3) [Vitamin D3] 5,000 unit PO DAILY capsule 01/20/13 Simvastatin [Zocor -] 40 mg PO HS 06/12/14 Ranitidine HCl [Zantac] 150 mg PO DAILY PRN 10/14/15 Ondansetron [Zofran Odt -] 8 mg SL Q6H PRN 11/03/15 Amlodipine Besylate [Norvasc -] 10 mg PO DAILY #30 tablet 11/21/15 Albuterol Sulfate Inhaler - [Ventolin HFA Inhaler -] 1 - 2 inh PO Q4H #1 inhaler 05/17/16 Budesonide/Formeterol Fumarate [SYMBICORT 160/4.5mcg -] 1 inh PO BID 05/17/16 Insulin Pump Controller [Snap Insulin Pump Controller] 1 each MC ASDIR 07/02/16 Levothyroxine [Synthroid -] 25 mcg PO DAILY 11/18/16 Problem List - Problems (1) Diabetic ketoacidosis Code(s): E13.10 - OTH DIABETES MELLITUS WITH KETOACIDOSIS WITHOUT COMA Qualifiers: Diabetes mellitus type: type 1 Diabetes mellitus complication detail: without coma Qualified Code(s): E10.10 - Type 1 diabetes mellitus with ketoacidosis without coma (2) Nausea Code(s): R11.0 - NAUSEA (3) Dehydration Code(s): E86.0 - DEHYDRATION (4) Hypertension Code(s): I10 - ESSENTIAL (PRIMARY) HYPERTENSION (5) Leukocytosis Code(s): D72.829 - ELEVATED WHITE BLOOD CELL COUNT, UNSPECIFIED (6) Hyperlipidemia Code(s): E78.5 - HYPERLIPIDEMIA, UNSPECIFIED (7) Hypothyroid Code(s): E03.9 - HYPOTHYROIDISM, UNSPECIFIED (8) Asthma Code(s): J45.909 - UNSPECIFIED ASTHMA, UNCOMPLICATED (9) Ulcerative colitis Code(s): K51.90 - ULCERATIVE COLITIS, UNSPECIFIED, WITHOUT COMPLICATIONS (10) Diabetes mellitus type 1 Code(s): E10.9 - TYPE 1 DIABETES MELLITUS WITHOUT COMPLICATIONS This patient is new to me today: No Emergency Visit: Yes ED Registration Date: 11/18/16 Care time: The patient presented to the Emergency Department on the above date and was hospitalized for further evaluation of their emergent condition. Critical Care patient: No - Discharge Referral Referred to [facility] Med P.C.: No
[2016-11-20] MEDS ORDERED: INSULIN (NOVOLOG) ASPART 100 UNITS/ML 10ML VIAL ONE (12:03)
--- NOTE | 2016-11-20 16:17 | PN ---
Teaching Attending Note Name of Resident: Caridad Chung ATTENDING PHYSICIAN STATEMENT I saw and evaluated the patient. I reviewed the resident's note and discussed the case with the resident. I agree with the resident's findings and plan as documented. SUBJECTIVE: no fever or chills, felt nauseous this am after receiving short acting insulin around 6-6:30 am OBJECTIVE: NAD. Cv : RRR Lungs: CTAb ext : no edema , no fungal infection among toes Abd : soft, NT, Nd , NL BS ASSESSMENT AND PLAN: 51 y/o lady with h/o IDDM , DKA, gastroparesis, asthma, UC , hypothyroidism, HTN , and HLP , who presented with abd pain and n/V . she was found to have DKA 1-DKA : resolved . probably got hypoglycemic this am befroe breakfast as her sx resolved with food intake and sugar was 108 while eating . will resume her own pump routine at [place] we booked her appointment with her senior c developer at 2:#0 pm today . she is aware . probably the pump tubing was kinked initially---> DKA she was advised to call MD when her sugar starts to climb up . 2- DARINEL : probably due to volume depletion resolved 3- HTN: resume ARB . dc home
== END 2016-11-20 13:29 | disposition home or self-care (01) | DRG 420 ==
LOC: JER 12:40 → JERBED 17:02 → J6S 18:46
PROVIDERS: ADMIT Internal Medicine; ATTEND Internal Medicine
DX: E10.10 Type 1 diabetes mellitus with ketoacidosis without coma (principal); E86.0 Dehydration; R11.0 Nausea; D72.829 Elevated white blood cell count, unspecified; E11.43 Type 2 diabetes mellitus with diabetic autonomic (poly)neuropathy; K31.84 Gastroparesis; E03.9 Hypothyroidism, unspecified; J45.909 Unspecified asthma, uncomplicated; K51.90 Ulcerative colitis, unspecified, without complications; E78.5 Hyperlipidemia, unspecified; N17.9 Acute kidney failure, unspecified; I10 Essential (primary) hypertension; G62.9 Polyneuropathy, unspecified; Z79.4 Long term (current) use of insulin
CPT/HCPCS: 36415; 71010-TC; 80048; 80053; 81003; 82009; 82803; 83735; 84100; 85025; 85027; 85610; 93005; 93010; 99285-25

== ENCOUNTER 2018-07-19 10:03 | Day surgery (SDC) | payer OTHER ==
[2018-07-14 15:02] VITALS: BMI 40.8
[2018-07-19] MEDS ORDERED: PROPOFOL 20 ML ONE (10:34)
[2018-07-19 12:36] VITALS: TEMP 97.8
[2018-07-19 13:08] VITALS: BP 135/59; PULSE 74
--- NOTE | 2018-07-21 15:59 | PATH ---
Surgical Pathology Report Patient Name: SUMMER ARAUZ [facility]. Rec. #: [id number] /Age/Gender: 1965 (Age: 53) / F Account: [id number] Location: [facility] Taken: 07/19/2018 Received: 07/19/2018 Reported: 07/21/2018 Physicians: Lloyd Obregon M.D. Specimen(s) Received A: BX CECUM B: RIGHT COLON C: TRANSVERSE COLON D: LEFT COLON E: BX SIGMOID F: RECTOSIGMOID G: RECTUM Clinical History Ulcerative colitis Postoperative diagnosis: Same Final Diagnosis A. CECUM, BIOPSY: MODERATE CHRONIC ACTIVE COLITIS. NEGATIVE FOR DYSPLASIA. B. RIGHT COLON, BIOPSY: MODERATE CHRONIC ACTIVE COLITIS. NEGATIVE FOR DYSPLASIA. C. TRANSVERSE COLON, BIOPSY: MODERATE CHRONIC ACTIVE COLITIS. NEGATIVE FOR DYSPLASIA. D. LEFT COLON, BIOPSY: MODERATE CHRONIC ACTIVE COLITIS. NEGATIVE FOR DYSPLASIA. E. SIGMOID, BIOPSY: MODERATE CHRONIC ACTIVE COLITIS. NEGATIVE FOR DYSPLASIA. F. RECTOSIGMOID, BIOPSY: MODERATE CHRONIC COLITIS/PROCTITIS, MILDLY ACTIVE. NEGATIVE FOR DYSPLASIA. G. RECTUM, BIOPSY: MODERATE CHRONIC PROCTITIS, MILDLY ACTIVE. NEGATIVE FOR DYSPLASIA. Electronically Signed Abigail Mcmahan M.D. Gross Description A. Received in formalin, labeled "cecum" are 4 sauceda, irregular portions of soft tissue averaging 0.2 cm. in greatest dimension. The specimens are submitted in toto in one cassette. B. Received in formalin, labeled "right colon" are 3 sauceda, irregular portions of soft tissue ranging from 0.3-0.5 cm. in greatest dimension. The specimens are submitted in toto in one cassette. C. Received in formalin, labeled "transverse colon" are 4 sauceda, irregular portions of soft tissue ranging from 0.2-0.3 cm. in greatest dimension. The specimens are submitted in toto in one cassette. D. Received in formalin, labeled "left colon" are 4 sauceda, irregular portions of soft tissue ranging from 0.2-0.4 cm. in greatest dimension. The specimens are submitted in toto in one cassette. E. Received in formalin, labeled "sigmoid" are 4 sauceda, irregular portions of soft tissue ranging from 0.3-0.4 cm. in greatest dimension. The specimens are submitted in toto in one cassette. F. Received in formalin, labeled "rectosigmoid" are 4 sauceda, irregular portions of soft tissue ranging from 0.2-0.5 cm. in greatest dimension. The specimens are submitted in toto in one cassette. G. Received in formalin, labeled "rectum" are 4 sauceda, irregular portions of soft tissue averaging 0.3 cm. in greatest dimension. The specimens are submitted in toto in one cassette. 07/20/2018 [facility]07/20/2018
== END 2018-07-19 13:15 | disposition home or self-care (01) ==
LOC: FASU-ENDO 10:03
PROVIDERS: ATTEND Internal Medicine Gastroenterology
PROC: 0DBE8ZX Excision of Large Intestine, Via Natural or Artificial Opening Endoscopic, Diagnostic (ICD-10-PCS; principal; 2018-07-19 11:15)
DX: K52.9 Noninfective gastroenteritis and colitis, unspecified (principal); K51.20 Ulcerative (chronic) proctitis without complications
CPT/HCPCS: 82962; 88305-TC

== ENCOUNTER 2018-11-10 06:24 | Day surgery (SDC) | payer OTHER ==
[2018-11-08 13:13] VITALS: BMI 39.2
[2018-11-10] MEDS ORDERED: GUM MASTIC/STORAX/MSAL/ALCOHOL 1 DRP DROPSBTL MC ONE (07:24)
[2018-11-10] MEDS ORDERED: LIDOCAINE HCL 2% (20ML MULTI-DOSE VIAL) NR ONE (07:24)
[2018-11-10] MEDS ORDERED: PROPOFOL 20 ML ONE (07:54)
[2018-11-10] MEDS ORDERED: MIDAZOLAM HCL 2 MG/2 ML SINGLE DOSE VIAL ONE (07:54)
[2018-11-10 08:37] VITALS: TEMP 97.5
--- NOTE | 2018-11-10 09:22 | OP ---
DATE OF OPERATION: 11/10/2018 PREOPERATIVE DIAGNOSIS: 1. Right de Quervain tenosynovitis. 2. Right wrist mass. POSTOPERATIVE DIAGNOSIS: 1. Right de Quervain tenosynovitis. 2. Right wrist mass. OPERATIVE PROCEDURE: 1. Right 1st dorsal primary release of the wrist. 2. Right wrist mass excision. SURGEON: Heladio Mo MD COOKY PACKER: MARJ Geradro ANESTHESIA: Local with sedation. COMPLICATIONS: None. ESTIMATED BLOOD LOSS: Minimal. INDICATIONS FOR PROCEDURE: The patient is a 53-year-old female with the above finding, indicated for operative treatment. The risks, benefits, and alternatives were discussed with the patient at length, and proper informed consent was obtained. DESCRIPTION OF PROCEDURE: After proper identification of the patient and the correct operative site, the patient was brought to the operating room and placed supine on the operating room table with prominences well padded. Sedation with local anesthesia was given. Right upper extremity was prepped and draped in the usual sterile fashion. Well-padded tourniquet was placed with a sterile prep. Esmarch bandage was used to exsanguinate the right upper extremity. Tourniquet inflated to 250 mmHg. Transverse incision made over the first dorsal compartment where the mass was. Incision was taken sharply through the skin with blunt and sharp dissection through subcutaneous tissues carefully protecting the radial sensory nerve branches. The mass was found to be a cyst coming off of the retinaculum of the 1st dorsal primary. The mass was excised in whole and sent for pathological evaluation. The 1st dorsal compartment was then divided along its dorsal border, and a separate subcompartment was noted and released, as well. No further subcompartments were noted. This provided complete release of the 1st dorsal compartment. Wound was irrigated and repaired with 4-0 Monocryl sutures. Steri-Strips and sterile dressings were applied. Patient was reversed from anesthesia and brought to the recovery room in stable condition. She tolerated the procedure well. HELADIO MO M.D. RACHEL/[id number]
[2018-11-10] MEDS ORDERED: PROMETHAZINE HCL 25 MG/1 ML VIAL IVPUSH PRN (09:39)
[2018-11-10] MEDS ORDERED: ONDANSETRON 4 MG/2 ML VIAL IVPUSH PRN (09:39)
[2018-11-10] MEDS ORDERED: oxyCODONE HCL 5 MG TABLET PO PRN ×2 (09:39)
[2018-11-10 12:46] VITALS: BP 120/76; PULSE 81
--- NOTE | 2018-11-12 19:48 | PATH ---
Surgical Pathology Report Patient Name: SUMMER ARAUZ [facility]. Rec. #: [id number] /Age/Gender: 1965 (Age: 53) / F Account: [id number] Location: [facility] Taken: 11/10/2018 Received: 11/10/2018 Reported: 11/12/2018 Physicians: Heladio Brantley M.D. Specimen(s) Received RIGHT WRIST MASS Clinical History Right De quervain's tenosynovitis and mass Final Diagnosis WRIST MASS, RIGHT, EXCISION: DENSE FIBROCONNECTIVE TISSUE WITH REACTIVE AND FOCAL MYXOID CHANGE CONSISTENT WITH GANGLION CYST. Electronically Signed Luz Greer M.D. Gross Description Received in formalin labeled "right wrist mass," is a 0.5 x 0.5 x 0.2 cm sauceda portion of soft tissue. The specimen is submitted in toto in one cassette. /11/11/2018 saudi11/11/2018
== END 2018-11-10 10:30 | disposition home or self-care (01) ==
LOC: FASU 06:24
PROVIDERS: ATTEND Orthopaedic Surgery Hand Surgery
PROC: 0LB50ZZ Excision of Right Lower Arm and Wrist Tendon, Open Approach (ICD-10-PCS; 2018-11-10)
PROC: 0LN50ZZ Release Right Lower Arm and Wrist Tendon, Open Approach (ICD-10-PCS; principal; 2018-11-10 08:04)
DX: M65.4 Radial styloid tenosynovitis [de Quervain] (principal); M67.431 Ganglion, right wrist
CPT/HCPCS: 82962; 88304-TC

== ENCOUNTER 2020-07-09 11:40 | Day surgery (SDC) | payer OTHER ==
[2020-07-06 18:35] VITALS: BMI 37.5
[2020-07-09] MEDS ORDERED: LIDOCAINE HCL/PF 2% SDV 5ML VIAL ONE (12:20)
[2020-07-09] MEDS ORDERED: PROPOFOL 20 ML ONE ×2 (12:20)
[2020-07-09 17:24] VITALS: TEMP 97.8
[2020-07-09 17:55] VITALS: BP 125/60; PULSE 83
== END 2020-07-09 16:00 | disposition home or self-care (01) ==
LOC: FASU-ENDO 11:40
PROVIDERS: ATTEND Internal Medicine Gastroenterology
PROC: 0DBL8ZX Excision of Transverse Colon, Via Natural or Artificial Opening Endoscopic, Diagnostic (ICD-10-PCS; 2020-07-09)
PROC: 0DBN8ZX Excision of Sigmoid Colon, Via Natural or Artificial Opening Endoscopic, Diagnostic (ICD-10-PCS; 2020-07-09)
PROC: 0DBP8ZX Excision of Rectum, Via Natural or Artificial Opening Endoscopic, Diagnostic (ICD-10-PCS; 2020-07-09)
PROC: 0DBF8ZX Excision of Right Large Intestine, Via Natural or Artificial Opening Endoscopic, Diagnostic (ICD-10-PCS; 2020-07-09)
PROC: 0DBG8ZX Excision of Left Large Intestine, Via Natural or Artificial Opening Endoscopic, Diagnostic (ICD-10-PCS; 2020-07-09)
PROC: 0DBH8ZX Excision of Cecum, Via Natural or Artificial Opening Endoscopic, Diagnostic (ICD-10-PCS; principal; 2020-07-09 12:34)
DX: K51.90 Ulcerative colitis, unspecified, without complications (principal)
CPT/HCPCS: 82962; 88305-TC

== ENCOUNTER 2023-01-18 10:29 | Emergency (ER) | payer OTHER ==
[2023-01-18 10:41] VITALS: TEMP 98.9; BMI 35.1
[2023-01-18] MEDS ORDERED: FAMOTIDINE 20 MG/50 ML IVPB 20 MG in PREMIX 50 IVPB ONE (10:58)
[2023-01-18] MEDS ORDERED: ONDANSETRON 4 MG/2 ML VIAL IVPB ONE (10:58)
[2023-01-18] MEDS ORDERED: ACETAMINOPHEN INJECTION 100 ML IVPB ONE (11:16)
[2023-01-18] MEDS ORDERED: FAMOTIDINE 20 MG/50 ML IVPB 20 MG/50 ML MG IVPB ONE (11:16)
[2023-01-18] MEDS ORDERED: ONDANSETRON 4 MG/2 ML VIAL ONE (11:20)
[2023-01-18] MEDS ORDERED: ACETAMINOPHEN 1000 MG/100 ML BAG IVPB ONE (11:29)
[2023-01-18 11:36] LABS: HEMATOCRIT 32.4 % (32.4-45.2); HEMOGLOBIN 10.6 G/dL (10.7-15.3); MCH 26.5 pg (25.7-33.7); MCHC 32.8 g/dl (32.0-36.0); MEAN CELL VOLUME 80.8 fl (80-96); MEAN PLT VOLUME 9.4 fl (7.5-11.1); PLATELET COUNT 255.3 10^3/uL (134-434); RBC 4.01 10^6/uL (3.60-5.2); RDW 15.9 % (11.6-15.6); WHITE BLOOD COUNT 10.2 10^3/uL (4.0-10.8)
[2023-01-18 11:52] LABS: ALBUMIN 4.1 g/dl (3.4-5.0); ALK PHOS 65 U/L (45-117); ANION GAP 11 MMOL/L (8-16); BILIRUBIN,TOTAL 0.4 mg/dl (0.2-1); BLOOD UREA NITROGEN 30.9 mg/dl (7-18); CALCIUM 9.3 mg/dl (8.5-10.1); CHLORIDE 105 mmol/L (98-107); CO2 23 mmol/L (21-32); CREATININE 1.7 mg/dl (0.6-1.3); GLUCOSE,RANDOM 131 mg/dl (74-106); POTASSIUM 4.1 mmol/L (3.5-5.1); SGOT/AST 19.2 U/L (15-37); SGPT/ALT 15.2 U/L (7-52); SODIUM 139 mmol/L (136-145); TOT PROT 6.2 g/dl (6.4-8.2)
[2023-01-18 12:07] LABS: PLATELET ESTIMATE ADEQUATE
[2023-01-18 12:54] LABS: LIPASE 99 U/L (73-393)
[2023-01-18 13:26] VITALS: BP 138/70; PULSE 77; RESP 14
== END 2023-01-18 15:22 | disposition home or self-care (01) ==
LOC: FER 10:29
PROC: 3E033GC Introduction of Other Therapeutic Substance into Peripheral Vein, Percutaneous Approach (ICD-10-PCS; principal; 2023-01-18)
PROC: 3E033GC Introduction of Other Therapeutic Substance into Peripheral Vein, Percutaneous Approach (ICD-10-PCS; 2023-01-18)
PROC: 3E033GC Introduction of Other Therapeutic Substance into Peripheral Vein, Percutaneous Approach (ICD-10-PCS; 2023-01-18)
DX: R07.9 Chest pain, unspecified (principal); R11.0 Nausea
CPT/HCPCS: 36415; 71046-TC-FY; 80053; 83690; 84484; 85027; 93005; 99285-25

== ENCOUNTER 2023-09-23 08:59 | Emergency (ER) | payer OTHER ==
[2023-09-23] MEDS ORDERED: LIDOCAINE 5% TOPICAL PATCH ONE (09:26)
[2023-09-23] MEDS ORDERED: METHOCARBAMOL 500 MG TABLET ONE (09:26)
[2023-09-23 09:29] VITALS: BP 159/66; PULSE 82; RESP 16; TEMP 98.3; BMI 36.6
[2023-09-23] MEDS: LIDOCAINE 5% TOPICAL PATCH TP ONE (09:37)
[2023-09-23] MEDS: METHOCARBAMOL 500 MG TABLET PO ONE (09:38)
== END 2023-09-23 11:16 | disposition home or self-care (01) ==
LOC: FER 08:59
DX: M25.552 Pain in left hip (principal); M54.50 Low back pain, unspecified
CPT/HCPCS: 73502-TC-LT-FY; 73502-TC-RT-FY; 99284-25

== ENCOUNTER 2023-11-20 10:18 | Emergency (ER) | payer OTHER ==
[2023-11-20 10:42] VITALS: BP 148/62; PULSE 91; RESP 16; TEMP 98.7; BMI 35.9
[2023-11-20 11:13] LABS: HEMATOCRIT 36.3 % (32.4-45.2); HEMOGLOBIN 11.8 G/dL (10.7-15.3); MCH 25.6 pg (25.7-33.7); MCHC 32.5 g/dl (32.0-36.0); MEAN CELL VOLUME 78.7 fl (80-96); MEAN PLT VOLUME 9.4 fl (7.5-11.1); PLATELET COUNT 219.4 10^3/uL (134-434); RBC 4.61 10^6/uL (3.60-5.2); RDW 16.3 % (11.6-15.6); WHITE BLOOD COUNT 6.8 10^3/uL (4.0-10.8)
[2023-11-20 11:42] LABS: CALCIUM 9.7 mg/dl (8.5-10.1); CREATININE 2.1 mg/dl (0.6-1.3); POTASSIUM 4.9 mmol/L (3.5-5.1)
[2023-11-20] MEDS: SODIUM CHLORIDE 0.9% 500 ML INFUS.BAG IV ONE (12:51)
== END 2023-11-20 14:15 | disposition home or self-care (01) ==
LOC: FER 10:18
DX: R07.89 Other chest pain (principal); R07.0 Pain in throat; N17.9 Acute kidney failure, unspecified
CPT/HCPCS: 36415; 80048; 84484; 85027; 93005; 99284-25

== ENCOUNTER 2023-12-04 09:23 | Emergency (ER) | payer OTHER ==
[2023-12-04 09:39] VITALS: BP 149/57; PULSE 87; RESP 18; TEMP 98.1; BMI 35.9
[2023-12-04] MEDS ORDERED: ACETAMINOPHEN 500 MG TABLET (FP) ONE (10:02)
[2023-12-04] MEDS ORDERED: LIDOCAINE 5% TOPICAL PATCH ONE (10:03)
[2023-12-04] MEDS: LIDOCAINE 5% TOPICAL PATCH TP ONE (10:10)
[2023-12-04] MEDS: ACETAMINOPHEN 500 MG TABLET (FP) PO ONE (10:10)
[2023-12-04 10:28] LABS: EPITHELIAL CELLS 0-5 /hpf
[2023-12-04 10:29] LABS: URINE HYALINE CAST 0-1 /lpf
[2023-12-04] MEDS ORDERED: LIDOCAINE PATCH REMOVAL MC ONE (22:00)
== END 2023-12-04 13:25 | disposition home or self-care (01) ==
LOC: FER 09:23
DX: R10.30 Lower abdominal pain, unspecified (principal); R11.0 Nausea; Z20.822 Contact with and (suspected) exposure to COVID-19
CPT/HCPCS: 0241U-QW; 76830-TC; 81003; 81015; 87086; 99284-25

== ENCOUNTER 2024-02-08 09:22 | Emergency (ER) | payer OTHER ==
[2024-02-08 09:44] VITALS: BP 109/47; PULSE 80; RESP 16; TEMP 98.3; BMI 34.4
[2024-02-08] MEDS: SODIUM CHLORIDE 1,000 ML IV STA (10:20)
[2024-02-08 10:35] LABS: HEMATOCRIT 36.1 % (32.4-45.2); HEMOGLOBIN 11.6 G/dL (10.7-15.3); MCH 25.3 pg (25.7-33.7); MCHC 32.1 g/dl (32.0-36.0); MEAN CELL VOLUME 78.9 fl (80-96); MEAN PLT VOLUME 9.2 fl (7.5-11.1); PLATELET COUNT 285.3 10^3/uL (134-434); RBC 4.58 10^6/uL (3.60-5.2); RDW 15.7 % (11.6-15.6); WHITE BLOOD COUNT 9.5 10^3/uL (4.0-10.8)
[2024-02-08 11:05] LABS: ALBUMIN 4.1 g/dl (3.4-5.0); ALK PHOS 72 U/L (45-117); ANION GAP 13 mmol/L (4-13); BILIRUBIN,TOTAL 0.4 mg/dl (0.2-1); CALCIUM 9.7 mg/dl (8.5-10.1); CHLORIDE 111 mmol/L (98-107); CO2 20 mmol/L (21-32); CREATININE 3.1 mg/dl (0.6-1.3); GLUCOSE,RANDOM 176 mg/dl (74-106); MAGNESIUM 2.3 mg/dL (1.8-2.4); PHOSPHOROUS 3.5 (2.5-4.9); POTASSIUM 3.1 mmol/L (3.5-5.1); SGOT/AST 16 U/L (15-37); SGPT/ALT 24 U/L (7-52); SODIUM 144 mmol/L (136-145); TOT PROT 6.5 g/dl (6.4-8.2)
[2024-02-08] MEDS: SODIUM CHLORIDE 0.9% 500 ML INFUS.BAG IV ONE (11:35)
[2024-02-08 11:53] LABS: PLATELET ESTIMATE ADEQUATE
[2024-02-08 11:54] LABS: VENOUS BASE EXCESS -7.9 mmol/L (-2-2); VENOUS O2 SATURATION 77.5 % (70-80); VENOUS PCO2 38.2 mmHg (38-52); VENOUS PH 7.291 (7.310-7.410)
[2024-02-08] MEDS ORDERED: POTASSIUM CHLORIDE ORAL LIQUID 20 MEQ/15 ML ONE (12:25)
[2024-02-08] MEDS: POTASSIUM CHLORIDE ORAL LIQUID 20 MEQ/15 ML PO ONE (12:29)
[2024-02-08 13:59] LABS: ANION GAP 11 mmol/L (4-13); CALCIUM 8.5 mg/dl (8.5-10.1); CHLORIDE 116 mmol/L (98-107); CO2 18 mmol/L (21-32); CREATININE 2.8 mg/dl (0.6-1.3); GLUCOSE,RANDOM 172 mg/dl (74-106); POTASSIUM 3.6 mmol/L (3.5-5.1); SODIUM 145 mmol/L (136-145)
== END 2024-02-08 14:20 | disposition home or self-care (01) ==
LOC: FER 09:22
PROC: 3E0337Z Introduction of Electrolytic and Water Balance Substance into Peripheral Vein, Percutaneous Approach (ICD-10-PCS; principal; 2024-02-08)
DX: R19.7 Diarrhea, unspecified (principal); R53.1 Weakness; R11.10 Vomiting, unspecified; Z20.822 Contact with and (suspected) exposure to COVID-19
CPT/HCPCS: 0241U-QW; 36415; 80048; 80053; 81003; 81015; 82803; 83735; 84100; 84443; 85027; 96360; 99284-25

== ENCOUNTER 2024-05-23 10:02 | Day surgery (SDC) | payer OTHER ==
[2024-05-18 15:17] VITALS: BMI 35.9
[2024-05-23 10:25] VITALS: RESP 20
[2024-05-23] MEDS ORDERED: GLYCOPYRROLATE 0.2 MG/1 ML VIAL ONE (11:34)
[2024-05-23] MEDS ORDERED: PROPOFOL 40 ML ONE (11:34)
[2024-05-23 12:02] VITALS: TEMP 97.1
[2024-05-23 12:22] VITALS: BP 96/50; PULSE 66
== END 2024-05-23 12:25 | disposition home or self-care (01) ==
LOC: FASU-ENDO 10:02
PROVIDERS: ATTEND Internal Medicine Gastroenterology
PROC: 0DBL8ZX Excision of Transverse Colon, Via Natural or Artificial Opening Endoscopic, Diagnostic (ICD-10-PCS; 2024-05-23)
PROC: 0DBN8ZX Excision of Sigmoid Colon, Via Natural or Artificial Opening Endoscopic, Diagnostic (ICD-10-PCS; 2024-05-23)
PROC: 0DBP8ZX Excision of Rectum, Via Natural or Artificial Opening Endoscopic, Diagnostic (ICD-10-PCS; 2024-05-23)
PROC: 0DBM8ZX Excision of Descending Colon, Via Natural or Artificial Opening Endoscopic, Diagnostic (ICD-10-PCS; 2024-05-23)
PROC: 0DBH8ZX Excision of Cecum, Via Natural or Artificial Opening Endoscopic, Diagnostic (ICD-10-PCS; 2024-05-23)
PROC: 0DBK8ZX Excision of Ascending Colon, Via Natural or Artificial Opening Endoscopic, Diagnostic (ICD-10-PCS; principal; 2024-05-23 11:14)
DX: Z12.11 Encounter for screening for malignant neoplasm of colon (principal); D12.7 Benign neoplasm of rectosigmoid junction; K52.9 Noninfective gastroenteritis and colitis, unspecified; Z87.19 Personal history of other diseases of the digestive system
CPT/HCPCS: 82962; 88305-TC

== ENCOUNTER 2024-06-06 10:31 | Emergency (ER) | payer OTHER ==
[2024-06-06 10:37] VITALS: BP 138/61; PULSE 87; RESP 18; TEMP 98.2; BMI 33.6
[2024-06-06] MEDS ORDERED: ACETAMINOPHEN INJECTION 100 ML ONE (11:06)
[2024-06-06] MEDS: ACETAMINOPHEN 1000 MG/100 ML BAG IVPB ONE (11:10)
[2024-06-06 11:37] LABS: HEMATOCRIT 37.9 % (32.4-45.2); HEMOGLOBIN 11.9 G/dL (10.7-15.3); MCHC 31.4 g/dl (32.0-36.0); MEAN CELL VOLUME 76.5 fl (80-96); MEAN PLT VOLUME 10.1 fl (7.5-11.1); PLATELET COUNT 254.3 10^3/uL (134-434); RBC 4.95 10^6/uL (3.60-5.2); RDW 16.6 % (11.6-15.6); WHITE BLOOD COUNT 5.8 10^3/uL (4.0-10.8)
[2024-06-06 11:57] LABS: ALBUMIN 4.4 g/dl (3.4-5.0); ALK PHOS 78 U/L (45-117); ANION GAP 9 mmol/L (4-13); BILIRUBIN,TOTAL 0.6 mg/dl (0.2-1); CALCIUM 9.4 mg/dl (8.5-10.1); CHLORIDE 102 mmol/L (98-107); CO2 27 mmol/L (21-32); CREATININE 1.7 mg/dl (0.6-1.3); GLUCOSE,RANDOM 230 mg/dl (74-106); MAGNESIUM 2.2 mg/dL (1.8-2.4); SGOT/AST 20 U/L (15-37); SGPT/ALT 16 U/L (7-52); SODIUM 138 mmol/L (136-145); TOT PROT 6.7 g/dl (6.4-8.2)
[2024-06-06] MEDS ORDERED: ACETAMINOPHEN 500 MG TABLET (FP) ONE (11:59)
[2024-06-06] MEDS ORDERED: LIDOCAINE 5% TOPICAL PATCH ONE (12:00)
[2024-06-06] MEDS ORDERED: KETOROLAC TROMETHAMINE 30 MG/1 ML VIAL ONE (12:00)
[2024-06-06] MEDS ORDERED: POTASSIUM CHLORIDE ORAL LIQUID 20 MEQ/15 ML ONE (12:11)
[2024-06-06] MEDS: POTASSIUM CHLORIDE ORAL LIQUID 20 MEQ/15 ML PO ONE (12:12)
[2024-06-06 13:26] LABS: PLATELET ESTIMATE ADEQUATE
[2024-06-06] MEDS ORDERED: KCL 10 MEQ IVPB 10 MEQ/100 ML INFUS.BAG IVPB ONE (13:51)
[2024-06-06] MEDS: KCL 10 MEQ IVPB 10 MEQ/100 ML INFUS.BAG IVPB SCH (14:02)
[2024-06-06 15:03] LABS: HIV INTERPRETATION NEGATIVE (NEGATIVE)
[2024-06-06 16:28] LABS: ALBUMIN 4.1 g/dl (3.4-5.0); ALK PHOS 81 U/L (45-117); ANION GAP 7 mmol/L (4-13); CHLORIDE 105 mmol/L (98-107); CO2 28 mmol/L (21-32); CREATININE 1.7 mg/dl (0.6-1.3); GLUCOSE,RANDOM 176 mg/dl (74-106); POTASSIUM 3.9 mmol/L (3.5-5.1); SGOT/AST 23 U/L (15-37); SGPT/ALT 15 U/L (7-52); SODIUM 140 mmol/L (136-145); TOT PROT 6.5 g/dl (6.4-8.2)
[2024-06-06 16:43] LABS: BILIRUBIN,TOTAL 0.5 mg/dl (0.2-1)
== END 2024-06-06 17:08 | disposition home or self-care (01) ==
LOC: FER 10:31
PROC: 3E033NZ Introduction of Analgesics, Hypnotics, Sedatives into Peripheral Vein, Percutaneous Approach (ICD-10-PCS; principal; 2024-06-06)
DX: E87.6 Hypokalemia (principal); R42 Dizziness and giddiness; R06.02 Shortness of breath; R05.9 Cough, unspecified; M79.10 Myalgia, unspecified site; R07.2 Precordial pain; R11.2 Nausea with vomiting, unspecified; J02.9 Acute pharyngitis, unspecified; R10.84 Generalized abdominal pain; R61 Generalized hyperhidrosis; Z20.822 Contact with and (suspected) exposure to COVID-19
CPT/HCPCS: 0241U-QW; 36415; 71046-TC-FY; 80053; 81003; 81015; 83735; 84484; 85027; 86803; 87389; 93005; 96374; 99285-25; J0131